=== PATIENT | female | born 1995 | race Caucasian/White ===

== ENCOUNTER 2018-09-20 16:40 | Inpatient (IN) | payer OTHER ==
[~2018-09-20] VITALS: Ht 160 cm; Wt 125.2 kg
[2018-09-20 16:51] VITALS: BP 142/74
[2018-09-20 17:32] LABS: ABSOLUTE NEUTROPHILS 6.4 thou/uL (1.4-8.2); BASOPHILS 0.3 % (0.0-2.0); EOSINOPHILS 0.4 % (0.0-3.0); HEMATOCRIT 35.9 % (37.0-47.0); HEMOGLOBIN 12.3 gm/dL (12.0-15.0); LYMPHOCYTES 8.8 % (24.0-44.0); MCH 31.9 pg (26.0-34.0); MCHC 34.4 g/dL (28.0-37.0); MCV 92.8 fL (80.0-100.0); MONOCYTES 11.2 % (1.0-8.0); PLATELET COUNT 230 thou/uL (150-400); POLYS 79.3 % (36.0-66.0); RBC 3.87 mil/uL (4.20-5.00); RDW 12.8 % (10.5-14.5)
[2018-09-20 17:40] LABS: CALCIUM 9.1 mg/dL (8.5-10.1); POTASSIUM 3.4 mmol/L (3.5-5.1)
[2018-09-20 17:46] LABS: ALBUMIN 3.2 g/dL (3.4-5.0); TOTAL BILIRUBIN 0.5 mg/dL (<0.1-1.0); TOTAL PROTEIN 7.8 g/dL (6.4-8.2)
[2018-09-20 18:11] LABS: URINE BILIRUBIN NEGATIVE (Negative); URINE BLOOD 2+ (Negative); URINE CLARITY CLEAR; URINE COLOR YELLOW; URINE GLUCOSE-RANDOM* NEGATIVE (Negative); URINE KETONES NEGATIVE (Negative); URINE LEUKOCYTES-REFLEX NEGATIVE (Negative); URINE NITRITE-REFLEX NEGATIVE (Negative); URINE PROTEIN (DIPSTICK) 1+ (Negative); URINE UROBILINOGEN 0.2 E.U./dl (0.2-1.0)
[2018-09-20 18:19] LABS: CASTS None Seen /LPF (None Seen); CRYSTALS None Seen /LPF (None Seen); SQUAMOUS 0-3 Few /LPF (0-3); URINE WBC-REFLEX 0-5 Rare /HPF (0-5)
[2018-09-20 18:20] LABS: URINE RBC 3-10 Few /HPF (0-2)
[2018-09-20 21:01] VITALS: BP 99/54
[2018-09-20 21:35] VITALS: BP 95/53
[2018-09-20 21:55] VITALS: BP 94/60
[2018-09-21 03:31] VITALS: BP 92/56
[2018-09-21 04:07] LABS: HEMATOCRIT 30.8 % (37.0-47.0); HEMOGLOBIN 10.5 gm/dL (12.0-15.0); MCH 32.1 pg (26.0-34.0); MCHC 34.2 g/dL (28.0-37.0); MCV 93.9 fL (80.0-100.0); RBC 3.27 mil/uL (4.20-5.00); RDW 12.6 % (10.5-14.5); WBC 6.8 thou/uL (4.0-11.0)
[2018-09-21 04:19] LABS: CALCIUM 7.8 mg/dL (8.5-10.1); CREATININE 0.9 mg/dL (0.6-1.0); MAGNESIUM 1.8 mg/dL (1.8-2.4); POTASSIUM 3.2 mmol/L (3.5-5.1)
[2018-09-21 08:33] VITALS: BP 122/68
--- NOTE | 2018-09-21 11:10 | NUR ---
Nutrition: RD received consult related to High BMI-48, extreme class 3 obesity. Admitted with Right sided pyelonephritis, S/P fall. Pt reports N/V over the past 3 days with little po intake. Has regular diet ordered here but is leary of eating. Did ask for crackers and explained alternative menu ordering for food preferences. Pt nauseated at time of visit and is not appropriate to discuss weight loss at this time. RD will followup at later date
--- NOTE | 2018-09-21 11:26 | NUR ---
TOWARDS POC PT A/O X4. VSS, AFEBRILE, PAIN MANAGED BY MEDS. PT HAD CT SCAN OF THE HEAD, RESULTS ARE IN. NO CONCERNS VOICED WILL CONTINUE TO MONITOR.
[2018-09-21] MEDS ORDERED: HYDROCODONE-AP1 EAC6 PO (14:40)
[2018-09-21] MEDS ORDERED: KEFLEX500 M1 PO (14:40)
[2018-09-21 14:57] VITALS: BP 122/68
== END 2018-09-21 15:46 | disposition home or self-care (01) | DRG 391 ==
LOC: ER 16:40 → 4W 20:48 → EROBS 20:48 → 4W 21:38 → ENTRNSPT 09-21 15:25 → EDTRNSPTSTS 09-21 15:27 → 4W 09-21 15:46
PROVIDERS: Nurse Practitioner Acute Care; Physician Assistant; ADMIT Hospitalist
DX: R10.9 Unspecified abdominal pain (principal); E43 Unspecified severe protein-calorie malnutrition; E87.6 Hypokalemia; G43.909 Migraine, unspecified, not intractable, without status migrainosus; Z79.899 Other long term (current) drug therapy
CPT/HCPCS: 10045

== ENCOUNTER 2018-09-23 08:02 | Emergency (ER) | payer OTHER ==
[~2018-09-23] VITALS: Ht 160 cm; Wt 117.9 kg
[~2018-09-23 08:02] MED LIST: HYDROCODONE-AP1 EAC6 PO; KEFLEX500 M1 PO
[2018-09-23 09:13] LABS: ABSOLUTE NEUTROPHILS 4.7 thou/uL (1.4-8.2); BASOPHILS 0.3 % (0.0-2.0); EOSINOPHILS 1.6 % (0.0-3.0); HEMATOCRIT 31.3 % (37.0-47.0); HEMOGLOBIN 10.6 gm/dL (12.0-15.0); LYMPHOCYTES 10.9 % (24.0-44.0); MCH 31.6 pg (26.0-34.0); MCHC 33.9 g/dL (28.0-37.0); MCV 93.4 fL (80.0-100.0); MONOCYTES 9.2 % (1.0-8.0); PLATELET COUNT 216 thou/uL (150-400); RBC 3.35 mil/uL (4.20-5.00); RDW 12.5 % (10.5-14.5); WBC 6.1 thou/uL (4.0-11.0)
[2018-09-23 09:21] LABS: CALCIUM 8.3 mg/dL (8.5-10.1); CREATININE 0.8 mg/dL (0.6-1.0)
[2018-09-23] MEDS ORDERED: BUTALB-APAP-CA1 EACH PO (10:20)
[2018-09-23] MEDS ORDERED: REGLAN 10 MG TA10 MG PO (10:20)
[2018-09-23 10:30] VITALS: BP 115/64
== END 2018-09-23 10:51 | disposition home or self-care (01) ==
LOC: ER 08:02
PROVIDERS: Emergency Medicine
DX: R51 Headache (principal); R11.2 Nausea with vomiting, unspecified